=== PATIENT | female | born 1995 | race Caucasian/White ===

== ENCOUNTER 2020-03-10 19:46 | Emergency (ER) | payer MEDICAID, OTHER ==
[~2020-03-10] VITALS: Ht 160 cm; Wt 68.0 kg
[2020-03-10 19:57] VITALS: BP 126/80
[2020-03-10] MEDS ORDERED: TETRACAINE 0.5% OPHTH SOLN 4 ML BTL (SINGLE DOSE ONLY) OP ONE (20:00)
--- NOTE | 2020-03-10 20:02 | ED EENT ---
History of Present Illness General Chief Complaint: Eye Problems Stated Complaint: LEFT EYE PAIN Nursing Triage Note: PT AMBULATE TO ROOM 07 WITH C/O LEFT EYE INJURY. PT REPORTS SHE SCRATCHED HER EYE WITH THE CORNER OF A MENU. Source: patient History of Present Illness Date Seen by Provider: Mar 10, 2020 Time Seen by Provider: 19:56 Initial Comments PT ARRIVES VIA POV STATES SHE SCRATCHED HER LEFT EYE WITH THE CORNER OF A MENU, ABOUT AN HOUR AGO STATES VISION IS A LITTLE BLURRY IN LEFT EYE HAS GLASSES BUT WAS NOT WEARING THEM AT THE TIME DOES NOT WEAR CONTACTS NO PRIOR PROBLEMS/INJURIES OF EYES LAST TETANUS VACCINATION IS UNKNOWN PT IS 31 WEEKS PCP AND OB: DR. BADILLO Allergies and Home Medications Allergies Coded Allergies: No Known Drug Allergies (Unverified , 03/10/20) Patient Home Medication List Home Medication List Reviewed: Yes Review of Systems Review of Systems Constitutional: no symptoms reported Eyes: See HPI Past Xsczqby-Oqnftq-Bftzyk Hx Past Med/Social Hx: Reviewed and Corrections made Patient Social History Recent Foreign Travel: No Contact w/Someone Who Travel: No Recent Infectious Disease Expo: No Immunizations Up To Date Tetanus Booster (TDap): Unknown Past Medical History Respiratory: No Cardiac: No Neurological: No : Yes Genitourinary: No Gastrointestinal: No Musculoskeletal: No Endocrine: No HEENT: No Cancer: No Psychosocial: No Integumentary: No Blood Disorders: No Physical Exam Vital Signs Vital Signs - First Documented 03/10/20 19:57 Temp 36.1 Pulse 101 Resp 18 B/P (MAP) 126/80 (95) O2 Delivery Room Air Height, Weight, BMI Height: '" Weight: lbs. oz. kg; 26.00 BMI Method: General Appearance: WD/WN, no apparent distress Eyes: right eye normal inspection; left eye other (NO WATERING OR DRAINAGE FROM EYE. NO PHOTOPHOBIA. NO REDNESS TO EYE. FLUORESCEIN STAIN SHOWS ABRASION TO CENTER OF CORNEA) Neurologic/Psychiatric: end stapler II-XII nml as tested, alert, oriented x 3 Procedures/Interventions Eye : Location: left eye Anesthesia (gtts): Tetracaine Progress/Procedure Conclusion FLUORESCEIN STAIN WITH UPTAKE TO CENTER OF CORNEA IRRIGATED WITH STERILE SALINE Progress/Results/Core Measures Results/Orders My Orders Orders - COURTNEY DUNN DO Tetracaine 0.5% Ophth Nanci Sdv (Tetracai (03/10/20 20:00) Fluorescein Strips (Defeq-R-Svxmau) (03/10/20 20:03) Balanced Salt Irrigation Soln (Bss Irrig (03/10/20 20:03) Dipht,Pertuss(Acell),Tet Adult (Boostrix (03/10/20 20:15) Dipht,Pertuss(Acell),Tet Adult (Boostrix (03/10/20 20:10) Gentamicin 0.3% Ophth Solution (Garamyci (03/10/20 20:10) Medications Given in ED Current Medications Medications Dose Ordered Sig/Akbar Route Start Time Stop Time Status Last Admin Dose Admin Balanced Salt Solution 15 ml STK-MED ONCE .ROUTE 03/10/20 20:03 03/10/20 20:07 DC 03/10/20 20:10 15 ML Fluorescein Sodium 1 mg STK-MED ONCE .ROUTE 03/10/20 20:03 03/10/20 20:07 DC 03/10/20 20:10 1 MG Tetracaine HCl 1 OR 2 DROPS INTO AFFEC... ONCE ONCE OP 03/10/20 20:00 03/10/20 20:01 DC 03/10/20 20:11 4 ML Vital Signs/I&O 03/10/20 19:57 Temp 36.1 Pulse 101 Resp 18 B/P (MAP) 126/80 (95) O2 Delivery Room Air Blood Pressure Mean: 95 Departure Impression Primary Impression: Left corneal abrasion Additional Impression: Audernqndy-ydexrwjug-kootoun (DPT) vaccination administered at current visit Disposition: HOME, SELF-CARE Condition: Stable Departure-Patient Inst. Referrals: GARETH BADILLO MD (PCP/Family) Primary Care Physician Patient Instructions: Corneal Abrasion (DC), Diphtheria and Tetanus Toxoids, and Acellular Pertussis Vaccine Add. Discharge Instructions: DO NOT RUB OR OTHERWISE TOUCH YOUR EYE TYLENOL NEEDED FOR PAIN USE EYE DROPS--2 DROPS EVERY 4 HOURS RETURN TO ER TOMORROW TO RECHECK YOUR EYE All discharge instructions reviewed with patient and/or family. Voiced understanding. Images Eye 1 - Abrasion, Dye uptake (fluorescein) COURTNEY DUNN DO Mar 10, 2020 20:02
[2020-03-10] MEDS ORDERED: BSS 15 ML ONE (20:03)
[2020-03-10] MEDS ORDERED: FLUORESCEIN (FLUOR-I-STRIPS) 1 MG STRP ONE (20:03)
[2020-03-10] MEDS ORDERED: GENTAMICIN 0.3% OPHTH SOLN 5 ML ONE (20:10)
[2020-03-10] MEDS ORDERED: TETANUS,DIPTH,PERTUSS P/F (BOOSTRIX) 0.5 ML VIAL IM ONE ×2 (20:10→20:15)
== END 2020-03-10 20:24 | disposition home or self-care (01) ==
LOC: ER 19:50
DX: S05.02XA Injury of conjunctiva and corneal abrasion without foreign body, left eye, initial encounter (principal); Z23 Encounter for immunization; W50.4XXA Accidental scratch by another person, initial encounter
CPT/HCPCS: 90715; 99284

== ENCOUNTER 2020-03-12 12:09 | Emergency (ER) | payer MEDICAID ==
[~2020-03-12] VITALS: Ht 160 cm; Wt 68.0 kg
[2020-03-12] MEDS ORDERED: TETRACAINE 0.5% OPHTH SOLN 4 ML BTL (SINGLE DOSE ONLY) OU ONE (12:15)
[2020-03-12] MEDS ORDERED: BSS 15 ML IR ONE (12:15)
[2020-03-12] MEDS ORDERED: FLUORESCEIN (FLUOR-I-STRIPS) 1 MG STRP OU ONE (12:15)
[2020-03-12 12:17] VITALS: BP 135/63
--- NOTE | 2020-03-12 12:24 | ED EENT ---
History of Present Illness General Chief Complaint: Eye Problems Stated Complaint: L EYE F/U Source: patient Exam Limitations: no limitations History of Present Illness Date Seen by Provider: Mar 12, 2020 Time Seen by Provider: 12:20 Initial Comments TO ER with reports of needing follow-up for left eye corneal abrasion she sustained on 03/10/2020 after scratching it with the corner of the menu. Her pain is much better. She has been using the gentamicin eyedrops. She does wear glasses. Timing/Duration: this morning Location: eye (L) Prearrival Treatment: no prearrival treatment Associated Symptoms: denies symptoms Allergies and Home Medications Allergies Coded Allergies: No Known Drug Allergies (Unverified , 03/10/20) Patient Home Medication List Home Medication List Reviewed: Yes Review of Systems Review of Systems Constitutional: see HPI Eyes: See HPI Ears: No Symptoms Reported Nose: no symptoms reported Mouth: no symptoms reported Throat: no symptoms reported Respiratory: no symptoms reported Cardiovascular: no symptoms reported Musculoskeletal: no symptoms reported Past Scfmbkd-Bnicnh-Avodyk Hx Patient Social History Alcohol Use: Denies Use Recreational Drug Use: No Smoking Status: Current Everyday Smoker Type Used: Cigarettes 2nd Hand Smoke Exposure: No Recent Foreign Travel: No Contact w/Someone Who Travel: No Recent Hopitalizations: No Immunizations Up To Date Tetanus Booster (TDap): Unknown Seasonal Allergies Seasonal Allergies: Yes Past Medical History Surgeries: No Respiratory: No Cardiac: No Neurological: No Genitourinary: No UTI-Chronic Gastrointestinal: No Musculoskeletal: No Endocrine: No HEENT: No Cancer: No Psychosocial: No Integumentary: No Blood Disorders: No Visual Acuity : Vision Acuity Degree: 20/20 each eye individually while wearing glasses Physical Exam Vital Signs Vital Signs - First Documented 03/12/20 12:17 Temp 36.9 Pulse 82 Resp 18 B/P (MAP) 135/63 (87) Pulse Ox 98 O2 Delivery Room Air Height, Weight, BMI Height: '" Weight: lbs. oz. kg; 26.00 BMI Method: General Appearance: WD/WN, no apparent distress Eyes: right eye normal inspection; left eye other (scleral injection that is mild to the inferior part of the eye. No dye uptake upon fluorescein staining); bilateral eye PERRL, bilateral eye EOMI Ears: bilateral ear auricle normal, bilateral ear canal normal, bilateral ear TM normal Neck: non-tender, full range of motion Cardiovascular: regular rate, rhythm, no murmur Respiratory: no respiratory distress, no accessory muscle use Gastrointestinal: normal bowel sounds, non tender Neurologic/Psychiatric: alert, normal mood/affect, oriented x 3 Skin: normal color, warm/dry Progress/Results/Core Measures Results/Orders My Orders Orders - TED CRUZ APRN Tetracaine 0.5% Ophth Nanci Sdv (Tetracai (03/12/20 12:15) Fluorescein Strips (Pvtnk-W-Jsduao) (03/12/20 12:15) Balanced Salt Irrigation Soln (Bss Irrig (03/12/20 12:15) Vital Signs/I&O 03/12/20 12:17 Temp 36.9 Pulse 82 Resp 18 B/P (MAP) 135/63 (87) Pulse Ox 98 O2 Delivery Room Air Departure Impression Primary Impression: Left corneal abrasion Disposition: HOME, SELF-CARE Condition: Stable Departure-Patient Inst. Decision time for Depature: 12:23 Referrals: GARETH BADILLO MD (PCP/Family) Primary Care Physician Patient Instructions: Corneal Abrasion (DC) Add. Discharge Instructions: Use the eye drops three times daily for the rest of today then you can stop. All discharge instructions reviewed with patient and/or family. Voiced understanding. TED CRUZ APRN Mar 12, 2020 12:24
== END 2020-03-12 12:30 | disposition home or self-care (01) ==
LOC: EDUNIT# 12:09 → ER 12:12
DX: S05.02XA Injury of conjunctiva and corneal abrasion without foreign body, left eye, initial encounter (principal); F17.210 Nicotine dependence, cigarettes, uncomplicated; W50.4XXA Accidental scratch by another person, initial encounter
CPT/HCPCS: 99282

== ENCOUNTER 2020-05-15 01:24 | Inpatient (IN) | payer MEDICAID ==
[~2020-05-15] VITALS: Ht 160 cm; Wt 80.5 kg
[2020-05-15] VITALS (39 sets, daily range): BP systolic 103–165; BP diastolic 55–96
[2020-05-15 03:02] LABS: BILIRUBIN,URINE NEGATIVE (NEGATIVE); CLARITY,URINE CLEAR; COLOR,URINE YELLOW; GLUCOSE, URINE (UA) NEGATIVE (NEGATIVE); KETONES,URINE 1+ (NEGATIVE); LEUKOCYTE ESTERASE ,URINE NEGATIVE (NEGATIVE); NITRITE,URINE NEGATIVE (NEGATIVE); PROTEIN,URINE NEGATIVE (NEGATIVE)
[2020-05-15 03:10] LABS: BACTERIA,URINE TRACE /HPF; RBC,URINE 0-2 /HPF
[2020-05-15] MEDS ORDERED: fentaNYL INJECTION 100 MCG/2 ML AMP ONE (04:07)
[2020-05-15] MEDS ORDERED: LACTATED RINGERS 1,000 ML IV ONE (04:30)
[2020-05-15] MEDS ORDERED: fentaNYL INJECTION 100 MCG/2 ML AMP IVP ONE (04:30)
[2020-05-15] MEDS ORDERED: AMPICILLIN 2,000 MG/14.8 ML (IV USE) ONE (04:37)
[2020-05-15] MEDS ORDERED: fentaNYL 2 mcg/ml BUPIVA 0.125 0 ML ONE (04:38)
[2020-05-15] MEDS ORDERED: WATER (STERILE) FOR INJECTION 20 ML ONE (04:38)
[2020-05-15] MEDS ORDERED: AMPICILLIN FOR IV USE 2,000 MG in WATER (STERILE) FOR INJECTION 14.8 ML IV SCH (04:39)
[2020-05-15 04:45] LABS: BASOPHILS % (AUTO) 0 % (0-10); EOSINOPHILS # (AUTO) 0.1 10^3/uL (0.0-0.3); EOSINOPHILS % (AUTO) 0 % (0-10); HEMATOCRIT 39 % (35-52); HEMOGLOBIN 12.8 g/dL (11.5-16.0); LYMPHOCYTES # (AUTO) 1.7 10^3/uL (1.0-4.0); LYMPHOCYTES % (AUTO) 9 % (12-44); MEAN CORPUSCULAR HEMOGLOBIN 30 pg (25-34); MEAN CORPUSCULAR HGB CONC 33 g/dL (32-36); MEAN CORPUSCULAR VOLUME 92 fL (80-99); MONOCYTES # (AUTO) 0.8 10^3/uL (0.0-1.0); MONOCYTES % (AUTO) 4 % (0-12); NEUTROPHILS # (AUTO) 16.5 10^3/uL (1.8-7.8); NEUTROPHILS % (AUTO) 85 % (42-75); PLATELET COUNT 238 10^3/uL (130-400); WHITE BLOOD COUNT 19.4 10^3/uL (4.3-11.0)
[2020-05-15] MEDS ORDERED: D5 LR IV SOLUTION 1,000 ML IV SCH (04:45)
[2020-05-15] MEDS ORDERED: MINERAL OIL CONCENTRATE 99.9% 15 ML UDC TOP PRN (04:45)
[2020-05-15] MEDS ORDERED: diphenhydrAMINE 50 MG/ML INJ (BENADRYL) IV PRN (05:15)
[2020-05-15] MEDS ORDERED: METOCLOPRAMIDE INJ 10 MG/2 ML (REGLAN) IV PRN (05:15)
[2020-05-15] MEDS ORDERED: ONDANSETRON 4 MG/2 ML (SDV) Z0FRAN IV PRN (05:15)
[2020-05-15] MEDS ORDERED: LACTATED RINGERS 1,000 ML IV SCH (05:15)
[2020-05-15] MEDS ORDERED: EPIDURAL (fentaNYL 2 MCG/ML BUPIVA 0.125%)100 ML BAG EPI SCH (05:15)
[2020-05-15] MEDS ORDERED: NALOXONE 0.4 MG/ML 1 ML (NARCAN) VIAL IV PRN ×2 (05:15)
[2020-05-15] MEDS ORDERED: CATHETER FLUSH 10 ML SYR IV SCH (06:00)
[2020-05-15] MEDS ORDERED: AMPICILLIN FOR IV USE 1,000 MG in WATER (STERILE) FOR INJECTION 7.4 ML IV SCH (08:45)
--- NOTE | 2020-05-15 08:54 | History & Physical-OB ---
OB - Chief Complaint & HPI Date/Time Date of Admission: Date of Admission: May 15, 2020 at 04:35 Date seen by a Provider: May 15, 2020 Time Seen by a Provider: 08:49 Chief Complaint/History OB-Reason for Admission/Chief: Onset of Labor Hx : 1 Hx Para: 0 Expected Date of Delivery: May 17, 2020 Gestational Age in Weeks: 39 Gestational Age in Days: 5 History of Labs O+, antibody screen neg RI, Hep B/HIV/RPR neg GC/Chl neg Penta - low risk Glucola neg Allergies and Home Medications Allergies Coded Allergies: No Known Drug Allergies (Unverified , 03/10/20) Home Medications No Active Prescriptions or Reported Meds Patient Home Medication List Home Medication List Reviewed: Yes OB - History Hx of Present Care: Yes Ultrasounds: Normal mid trimester US Obstetrical Complications: None Medical Complications: None Information Induced Hypertension: No Maternal Gestational Diabetes: No Hemorrhage: No Obstetrical History Hx : 1 Hx Para: 0 Hx Total # of Abortions (Spona: 0 Patient Past Medical History none Social History/Family History Alcohol Use: Denies Use Recreational Drug Use: No 2nd Hand Smoke Exposure: No Immunizations Tetanus Booster (TDap): Less than 5yrs (03/10/20) Rubella: immune RPR/VDRL: Negative HBsAG: Negative OB - Admission Exam Physical Exam Vitals: Vital Signs 05/15/20 05/15/20 05:45 08:15 Temp 37.0 Pulse 80 Resp 18 B/P (MAP) 116/77 (90) Pulse Ox 98 O2 Delivery Room Air HEENT: PERRLA Lungs: Clear Abdomen: Gravid Cervical Dilatation: 10cm (3cm on admission) Effacement: 100% Station: +1 Membranes: Ruptured (AROM) Amniotic Fluid: Clear Heart Rate: 140's Accelerations: Accelerations Present Short Term Variability: Present Jail Variability: Average (6-25) Contractions on Admission: < 5 Minutes Apart Labs Laboratory Tests Test 05/15/20 01:30 05/15/20 04:25 Range/Units Urine Color YELLOW Urine Clarity CLEAR Urine pH 6.0 5-9 Urine Specific [place] 1.015 L 1.016-1.022 Urine Protein NEGATIVE NEGATIVE Urine Glucose (UA) NEGATIVE NEGATIVE Urine Ketones 1+ H NEGATIVE Urine Nitrite NEGATIVE NEGATIVE Urine Bilirubin NEGATIVE NEGATIVE Urine Urobilinogen 0.2 < = 1.0 MG/DL Urine Leukocyte Esterase NEGATIVE NEGATIVE Urine RBC (Auto) TRACE-I NEGATIVE Urine RBC 0-2 /HPF Urine WBC NONE /HPF Urine Squamous Epithelial Cells 2-5 /HPF Urine Crystals NONE /LPF Urine Bacteria TRACE /HPF Urine Casts NONE /LPF Urine Mucus NEGATIVE /LPF Urine Culture Indicated NO White Blood Count 19.4 H 4.3-11.0 10^3/uL Red Blood Count 4.21 3.80-5.11 10^6/uL Hemoglobin 12.8 11.5-16.0 g/dL Hematocrit 39 35-52 % Mean Corpuscular Volume 92 80-99 fL Mean Corpuscular Hemoglobin 30 25-34 pg Mean Corpuscular Hemoglobin Concent 33 32-36 g/dL Red Cell Distribution Width 12.9 10.0-14.5 % Platelet Count 238 130-400 10^3/uL Mean Platelet Volume 11.0 9.0-12.2 fL Immature Granulocyte % (Auto) 2 % Neutrophils (%) (Auto) 85 H 42-75 % Lymphocytes (%) (Auto) 9 L 12-44 % Monocytes (%) (Auto) 4 0-12 % Eosinophils (%) (Auto) 0 0-10 % Basophils (%) (Auto) 0 0-10 % Neutrophils # (Auto) 16.5 H 1.8-7.8 10^3/uL Lymphocytes # (Auto) 1.7 1.0-4.0 10^3/uL Monocytes # (Auto) 0.8 0.0-1.0 10^3/uL Eosinophils # (Auto) 0.1 0.0-0.3 10^3/uL Basophils # (Auto) 0.0 0.0-0.1 10^3/uL Immature Granulocyte # (Auto) 0.3 H 0.0-0.1 10^3/uL OB - Assessment/Plan/Diagnosis Assessment Assessment: active labor Admission Dx MICHAEL Admission Status: Inpatient Order (span 2 midnights) Reason for Inpatient Admission: Labor and Delivery Plan Plan: Expectant Management MICHELLE ROLON DO May 15, 2020 08:54
[2020-05-15] MEDS ORDERED: OXYTOCIN PRE-MIX DRIP 500 ML IV ONE ×2 (09:30→10:37)
--- NOTE | 2020-05-15 10:59 | OB Labor & Delivery Record ---
Vag Delivery Note Vag Delivery Note Date of Delivery: 05/15/20 Preoperative Diagnosis: Lucia Puente is a (24 /Para 1 / 0, Gestational Age (wks)39with [] Postoperative Diagnosis: Same Surgeon: MICHELLE ROLON Anesthesia: Epidural Delivery Type: Spontaneous Vaginal Delivery Findings: Viable male infant, apgars 8/9, weight 6#4 Lacerations: L vaginal sidewall and posterior vaginal sidewall Intact placenta with 3 vessel cord. Nuchal cord x1, no body cord or shoulder dystocia. Retained membranes removed with manual exploration of the uterus (MEU) Estimated Blood Loss: 150 ml Complications: None Condition: Stable Description of Procedure: The patient is a 24 year old female who presented in spontaneous labor dilated to 3cm. She was admitted and informed consent was obtained. Her labor course was unremarkable. She progressed to complete dilatation and began to push. She was then set up for delivery. The 's head was delivered atraumatically in the MERARY position, head noted to be acyclintic. The shoulders and remainder of the 's body were then delivered without difficulty. Upon delivery, the head was held below the level of the perineum and the mouth and nares were bulb suctioned. was placed on the maternal abdomen. The cord was doubly clamped and cut and the infant after cessation of cord pulsation. An intact radha centa with 3-vessel cord delivered via Robe and there was found to be minimal bleeding; membranes were noted to be retained and were removed via MEU.~ Vigorous fundal massage was performed and the fundus was found to be firm. IV oxytocin was given. Examination of the vagina and perineum revealed a left and posterior vaginal sidewall laceration repaired in the usual fashion with 3-0 vicryl suture. Following the repair, sponge, instrument and needle counts were correct. Mom and baby were both in stable condition in the labor suite. Vitals - Labs Vital Signs - I&O Vital Signs Date Time Temp Pulse Resp B/P (MAP) Pulse Ox O2 Delivery O2 Flow Rate FiO2 05/15/20 09:00 90 18 120/66 (84) 98 Room Air 05/15/20 08:45 36.8 91 18 114/78 (90) 98 Room Air 05/15/20 08:30 81 18 113/74 (87) 97 Room Air 05/15/20 08:15 80 18 116/77 (90) 98 Room Air 05/15/20 08:00 82 18 123/70 (87) 97 Room Air 05/15/20 07:45 80 18 114/58 (76) 98 Room Air 05/15/20 07:30 77 18 115/65 (82) 97 Room Air 05/15/20 07:15 100 18 121/62 (81) 99 Room Air 05/15/20 07:00 96 18 122/59 (80) 98 Room Air 05/15/20 06:45 85 18 116/57 (76) 99 Room Air 05/15/20 06:30 85 18 112/55 (74) 98 Room Air 05/15/20 06:15 84 18 116/62 (80) 98 Room Air 05/15/20 06:00 94 18 115/72 (86) 100 Room Air 05/15/20 05:50 96 18 97 Room Air 05/15/20 05:45 37.0 87 18 122/65 (84) 96 Room Air 05/15/20 05:40 81 18 115/55 (75) 97 Room Air 05/15/20 05:35 88 18 130/63 (85) 100 Room Air 05/15/20 05:30 95 18 163/81 (108) 99 Room Air 05/15/20 05:25 91 18 156/70 (98) 99 Room Air 05/15/20 05:20 86 18 131/96 (108) 99 Room Air 05/15/20 05:15 88 18 165/69 (101) 100 Room Air 05/15/20 05:10 36.6 90 18 156/76 (102) 100 Room Air 05/15/20 02:05 36.8 90 18 97 Room Air 05/15/20 01:41 36.8 90 18 97 Room Air 05/15/20 01:40 36.8 90 18 122/67 (85) 97 Room Air I & O 05/15/20 07:00 Intake Total 1029.6 ml Balance 1029.6 ml Labs Laboratory Tests 05/15/20 01:30: Urine Color YELLOW, Urine Clarity CLEAR, Urine pH 6.0, Urine Specific [place] 1.015L, Urine Protein NEGATIVE, Urine Glucose (UA) NEGATIVE, Urine Ketones 1+H, Urine Nitrite NEGATIVE, Urine Bilirubin NEGATIVE, Urine Urobilinogen 0.2, Urine Leukocyte Esterase NEGATIVE, Urine RBC (Auto) TRACE-I, Urine RBC 0-2, Urine WBC NONE, Urine Squamous Epithelial Cells 2-5, Urine Crystals NONE, Urine Bacteria TRACE, Urine Casts NONE, Urine Mucus NEGATIVE, Urine Culture Indicated NO 05/15/20 04:25: White Blood Count 19.4H, Red Blood Count 4.21, Hemoglobin 12.8, Hematocrit 39, Mean Corpuscular Volume 92, Mean Corpuscular Hemoglobin 30, Mean Corpuscular Hemoglobin Concent 33, Red Cell Distribution Width 12.9, Platelet Count 238, Mean Platelet Volume 11.0, Immature Granulocyte % (Auto) 2, Neutrophils (%) (Auto) 85H, Lymphocytes (%) (Auto) 9L, Monocytes (%) (Auto) 4, Eosinophils (%) (Auto) 0, Basophils (%) (Auto) 0, Neutrophils # (Auto) 16.5H, Lymphocytes # (Auto) 1.7, Monocytes # (Auto) 0.8, Eosinophils # (Auto) 0.1, Basophils # (Auto) 0.0, Immature Granulocyte # (Auto) 0.3H MICHELLE ROLON DO May 15, 2020 10:59
[2020-05-15] MEDS: OXYTOCIN PRE-MIX DRIP 500 ML IV SCH ×2 (11:23→11:24)
[2020-05-15] MEDS ORDERED: WITCH HAZEL(TUCKS) 40 EA JAR TOP PRN (11:30)
[2020-05-15] MEDS ORDERED: BENZOCAINE/MENTHOL (DERMOPLAST) 60 ML CAN TP PRN (11:30)
[2020-05-15] MEDS: IBUPROFEN 600 MG (MOTRIN) TAB PO SCH ×2 (12:08→17:55)
[2020-05-15] MEDS: ACETAMINOPHEN 500 MG TAB (TYLENOL) PO SCH (17:57)
[2020-05-15] MEDS: CATHETER FLUSH 10 ML SYR IV SCH (19:46)
[2020-05-15] MEDS: DOCUSATE SODIUM 100 MG (COLACE) CAP PO SCH (20:50)
[2020-05-16 00:27] VITALS: BP 106/61
[2020-05-16] MEDS: ACETAMINOPHEN 500 MG TAB (TYLENOL) PO SCH ×4 (00:27→19:51)
[2020-05-16] MEDS: IBUPROFEN 600 MG (MOTRIN) TAB PO SCH ×4 (00:27→19:51)
[2020-05-16 04:10] VITALS: BP 104/55
[2020-05-16] MEDS: CATHETER FLUSH 10 ML SYR IV SCH (04:15)
[2020-05-16 05:59] LABS: BASOPHILS % (AUTO) 0 % (0-10); EOSINOPHILS # (AUTO) 0.2 10^3/uL (0.0-0.3); EOSINOPHILS % (AUTO) 2 % (0-10); HEMATOCRIT 31 % (35-52); LYMPHOCYTES % (AUTO) 20 % (12-44); MEAN CORPUSCULAR HEMOGLOBIN 30 pg (25-34); MEAN CORPUSCULAR HGB CONC 32 g/dL (32-36); MEAN CORPUSCULAR VOLUME 94 fL (80-99); MEAN PLATELET VOLUME 10.8 fL (9.0-12.2); MONOCYTES # (AUTO) 0.8 10^3/uL (0.0-1.0); MONOCYTES % (AUTO) 8 % (0-12); NEUTROPHILS # (AUTO) 6.7 10^3/uL (1.8-7.8); NEUTROPHILS % (AUTO) 69 % (42-75); PLATELET COUNT 197 10^3/uL (130-400); WHITE BLOOD COUNT 9.8 10^3/uL (4.3-11.0)
[2020-05-16 07:49] VITALS: BP 112/58
[2020-05-16] MEDS: PRENATAL VITAMIN 1 EA TAB PO SCH (07:50)
[2020-05-16] MEDS: DOCUSATE SODIUM 100 MG (COLACE) CAP PO SCH ×2 (07:50→19:51)
--- NOTE | 2020-05-16 08:30 | Progress Note ---
Subjective Subjective/Events-last exam Doing well. Bleeding slowed. going well. Objective Exam Last Set of Vital Signs Vital Signs Date Time Temp Pulse Resp B/P (MAP) Pulse Ox O2 Delivery O2 Flow Rate FiO2 05/16/20 07:49 36.7 99 18 112/58 (76) 98 Room Air 05/15/20 10:15 15.00 Capillary Refill : Less Than 3 Seconds I&O Intake and Output 05/16/20 00:00 Intake Total 3637.0 ml Balance 3637.0 ml Intake Oral 600 ml IV Total 3037.0 ml # Voids 1 General: Alert, Oriented X3, Cooperative Psych/Mental Status: Mood NL Results/Procedures Lab Laboratory Tests 05/15/20 12:35: Coronavirus (COVID-19)(PCR) Negative 05/16/20 05:49: White Blood Count 9.8, Red Blood Count 3.29L, Hemoglobin 10.0#L, Hematocrit 31L, Mean Corpuscular Volume 94, Mean Corpuscular Hemoglobin 30, Mean Corpuscular Hemoglobin Concent 32, Red Cell Distribution Width 13.2, Platelet Count 197, Mean Platelet Volume 10.8, Immature Granulocyte % (Auto) 2, Neutrophils (%) (Auto) 69, Lymphocytes (%) (Auto) 20, Monocytes (%) (Auto) 8, Eosinophils (%) (Auto) 2, Basophils (%) (Auto) 0, Neutrophils # (Auto) 6.7, Lymphocytes # (Auto) 2.0, Monocytes # (Auto) 0.8, Eosinophils # (Auto) 0.2, Basophils # (Auto) 0.0, Immature Granulocyte # (Auto) 0.2H Assessment/Plan Assessment/Plan (1) Status post vaginal delivery Assessment & Plan: PPD #1 s/p L and posterior vaginal side wall laceration s/p repair Doing well. Routine post- course. Anticipate DC home tomorrow. (2) Positive GBS test MICHELLE ROLON DO May 16, 2020 08:30
--- NOTE | 2020-05-16 11:27 | Anesthesia-Regional Post-Op ---
Regional Patient Condition Mental Status: Alert, Oriented x3 Circulation: Same as Pre-Op Headache: Absent Sensation: Full Recovery Motor Block: Absent Post Op Complications Complications None Follow Up Care/Instructions Patient Instructions None needed. Anesthesia/Patient Condition Patient is doing well, no complaints, stable vital signs, no apparent adverse anesthesia problems. BAYRON CEVALLOS DO May 16, 2020 11:27
[2020-05-16 14:05] VITALS: BP 113/55
[2020-05-16 20:02] VITALS: BP 114/67
[2020-05-17 02:00] VITALS: BP 110/61
[2020-05-17] MEDS: ACETAMINOPHEN 500 MG TAB (TYLENOL) PO SCH ×2 (02:05→08:31)
[2020-05-17] MEDS: IBUPROFEN 600 MG (MOTRIN) TAB PO SCH ×2 (02:05→08:32)
[2020-05-17 08:29] VITALS: BP 104/56
[2020-05-17] MEDS: PRENATAL VITAMIN 1 EA TAB PO SCH (08:32)
[2020-05-17] MEDS: DOCUSATE SODIUM 100 MG (COLACE) CAP PO SCH (08:32)
--- NOTE | 2020-05-17 09:19 | Short Stay Summary ---
Discharge Summary Hospital Course Problems/Dx: (1) Status post vaginal delivery (2) Positive GBS test Final Diagnosis: see Problem List Hospital Course Date of Admission: May 15, 2020 at 04:35 Family Physician/Provider: Keiko Hermosillo MD Date of Discharge: 05/17/20 Hospital Course: (1) Status post vaginal delivery Assessment & Plan: PPD #2 s/p L and posterior vaginal side wall laceration s/p repair Doing well. Routine post- course. DC home. Labs and Pending Lab Test: Laboratory Tests 05/15/20 01:30: Urine Color YELLOW, Urine Clarity CLEAR, Urine pH 6.0, Urine Specific [place] 1.015L, Urine Protein NEGATIVE, Urine Glucose (UA) NEGATIVE, Urine Ketones 1+H, Urine Nitrite NEGATIVE, Urine Bilirubin NEGATIVE, Urine Urobilinogen 0.2, Urine Leukocyte Esterase NEGATIVE, Urine RBC (Auto) TRACE-I, Urine RBC 0-2, Urine WBC NONE, Urine Squamous Epithelial Cells 2-5, Urine Crystals NONE, Urine Bacteria TRACE, Urine Casts NONE, Urine Mucus NEGATIVE, Urine Culture Indicated NO 05/15/20 04:25: White Blood Count 19.4H, Red Blood Count 4.21, Hemoglobin 12.8, Hematocrit 39, Mean Corpuscular Volume 92, Mean Corpuscular Hemoglobin 30, Mean Corpuscular Hemoglobin Concent 33, Red Cell Distribution Width 12.9, Platelet Count 238, Mean Platelet Volume 11.0, Immature Granulocyte % (Auto) 2, Neutrophils (%) (Auto) 85H, Lymphocytes (%) (Auto) 9L, Monocytes (%) (Auto) 4, Eosinophils (%) (Auto) 0, Basophils (%) (Auto) 0, Neutrophils # (Auto) 16.5H, Lymphocytes # (Auto) 1.7, Monocytes # (Auto) 0.8, Eosinophils # (Auto) 0.1, Basophils # (Auto) 0.0, Immature Granulocyte # (Auto) 0.3H, Syphilis Serology Non-Reactive 05/15/20 12:35: Coronavirus (COVID-19)(PCR) Negative 05/16/20 05:49: White Blood Count 9.8, Red Blood Count 3.29L, Hemoglobin 10.0#L, Hematocrit 31L, Mean Corpuscular Volume 94, Mean Corpuscular Hemoglobin 30, Mean Corpuscular Hemoglobin Concent 32, Red Cell Distribution Width 13.2, Platelet Count 197, Mean Platelet Volume 10.8, Immature Granulocyte % (Auto) 2, Neutrophils (%) (Auto) 69, Lymphocytes (%) (Auto) 20, Monocytes (%) (Auto) 8, Eosinophils (%) (Auto) 2, Basophils (%) (Auto) 0, Neutrophils # (Auto) 6.7, Lymphocytes # (Auto) 2.0, Monocytes # (Auto) 0.8, Eosinophils # (Auto) 0.2, Basophils # (Auto) 0.0, Immature Granulocyte # (Auto) 0.2H Home Meds Active No Active Prescriptions or Reported Medications Assessment/Pt Instructions follow-up with Dr. Hermosillo in 6wk Discharge Instructions Discharge Diet: No Restrictions Activity as Tolerated: Yes Discharge Physical Examination General Appearance: Alert, Oriented X3, Cooperative Psych/Mental Status: Mood NL Allergies: Coded Allergies: No Known Drug Allergies (Unverified , 03/10/20) Discharge Summary Date of Admission May 15, 2020 at 04:35 Date of Discharge MICHELLE ROLON DO May 17, 2020 09:19
[2020-05-17] MEDS ORDERED: IBUP-844 PO (09:20)
== END 2020-05-17 12:10 | disposition home or self-care (01) | DRG 807 ==
LOC: WSo 01:24 → LDRP 01:25 → WSo 04:44 → LDRP 14:06
PROVIDERS: ADMIT Family Medicine; ATTEND Family Medicine
PROC: 10E0XZZ Delivery of Products of Conception, External Approach (ICD-10-PCS; principal; 2020-05-15)
PROC: 10D17Z9 Manual Extraction of Products of Conception, Retained, Via Natural or Artificial Opening (ICD-10-PCS; 2020-05-15)
PROC: 0UQGXZZ Repair Vagina, External Approach (ICD-10-PCS; 2020-05-15)
DX: O99.824 Streptococcus B carrier state complicating childbirth (principal); Z37.0 Single live birth; O73.1 Retained portions of placenta and membranes, without hemorrhage; O71.4 Obstetric high vaginal laceration alone; O69.81X0 Labor and delivery complicated by cord around neck, without compression, not applicable or unspecified; Z3A.39 39 weeks gestation of pregnancy; Z20.822 Contact with and (suspected) exposure to COVID-19
CPT/HCPCS: 36415; 81000; 85025; 86780; 86850; 86900; 86901; 87635; 99212

== ENCOUNTER 2020-08-04 22:54 | Emergency (ER) | payer MEDICAID ==
[~2020-08-04] VITALS: Ht 160 cm; Wt 63.5 kg
[~2020-08-04 22:54] MED LIST: IBUP-844 PO; PROM25TA14 PO
[2020-08-04 22:55] VITALS: BP 119/83
[2020-08-04] MEDS ORDERED: MAGN100T5 PO (23:04)
--- NOTE | 2020-08-04 23:30 | ED Headache ---
General Chief Complaint: Head/Cervical Problems Stated Complaint: MIGRAINE Nursing Triage Note: C/O LEFT ANTERIOR HEADACHE X2 DAYS WORSE X2HRS. Nursing Sepsis Screen: No Definite Risk Source: patient History of Present Illness Date Seen by Provider: August 04, 2020 Time Seen by Provider: 23:11 Initial Comments PT ARRIVES VIA POV FROM HOME WITH C/O "MIGRAINE" PAIN IS OVER LEFT BROW AND "GOES BACK AND FORTH BETWEEN HER EYEBROW AND HER MOSQUE" HAS HAD SOME NAUSEA TODAY AND "FELT SHAKEY" EARLIER NO VOMITING NO VISION CHANGES NO PARESTHESIAS OR MOTOR DEFICITS NO NECK PAIN OR STIFFNESS NO FEVER OR RECENT ILLNESS NO AURA STATES SHE HAS HAD MIGRAINES SINCE SHE WAS 21, "REALLY BAD FOR 2 1/2 YEARS" STATES SHE GOT AND DID NOT HAVE ANY HEADACHES AT ALL, THEN DELIVERED 05/15/20 AND HEADACHES HAVE RETURNED SINCE DELIVERY PT HAD NORMAL AND DELIVERY WITHOUT COMPLICATIONS PT IS PT IS NOT ON CONTROL AND HAS NOT HAD A PERIOD SINCE DELIVERY, NOR DONE A TEST PT STATES SHE HAS NEVER HAD ANY TESTS/WORK UP FOR HER HEADACHES NOR SEEN A NEUROLOGIST / HEADACHE SPECIALIST NO KNOWN SICK CONTACTS OR EXPOSURE TO COVID-19, NOR HAS SHE HAD COVID-19 VACCINE SEEN HERE 08/01/20 FOR SAME, WAS GIVEN INJECTIONS FOR HER HEADACHE STATES HEADACHE GOT A LITTLE BETTER, BUT HAS NOT GONE AWAY. TOOK 1 IBUPROFEN SOMETIME THIS AFTERNOON, AND 1 EXCEDRIN MIGRAINE AROUND 1999 LAURE HAS NOT SOUGHT CARE WITH HER PCP FOR THIS AT ANY TIME. STATES SHE NOW HAS AN APPOINTMENT NEXT SATURDAY WITH DR. BADILLO FOR THIS PROBLEM PCP: [facility] [place], DR. BADILLO Allergies and Home Medications Allergies Coded Allergies: No Known Drug Allergies (Unverified , 03/10/20) Home Medications Ibuprofen 600 Mg Tablet, 600 MG PO Q6HR PRN for CRAMPS Prescribed by: MICHELLE ROLON on 05/17/20919 Promethazine HCl 25 Mg Tablet, 25 MG PO Q6H PRN for NAUSEA/VOMITING Prescribed by: KIRAN ZELAYA on 08/01/20 1925 Patient Home Medication List Home Medication List Reviewed: Yes Review of Systems Review of Systems Constitutional: no symptoms reported Eyes: No Symptoms Reported Ears, Nose, Mouth, Throat: no symptoms reported Respiratory: no symptoms reported Cardiovascular: no symptoms reported Gastrointestinal: see HPI; No abdominal pain, No diarrhea; nausea; No vomiting Genitourinary: no symptoms reported Musculoskeletal: no symptoms reported Skin: no symptoms reported Psychiatric/Neurological: See HPI, Headache Past Crlzsuu-Yietdw-Eiibvf Hx Past Med/Social Hx: Reviewed and Corrections made Patient Social History Alcohol Use: Denies Use Drug of Choice: DENIES Smoking Status: Former Smoker Type Used: Cigarettes Former Smoker, Quit: Apr 11, 2020 2nd Hand Smoke Exposure: No Recent Infectious Disease Expo: No Recent Hopitalizations: No Immunizations Up To Date Tetanus Booster (TDap): Less than 5yrs Seasonal Allergies Seasonal Allergies: Yes Past Medical History Surgeries: No Respiratory: No Cardiac: No Neurological: Yes (HEADACHES SINCE AGE 21) Headaches /Migraines Reproductive Disorders: No Genitourinary: Yes UTI-Chronic Gastrointestinal: No Musculoskeletal: No Endocrine: No HEENT: No Cancer: No Psychosocial: No Integumentary: No Blood Disorders: No Physical Exam Vital Signs Vital Signs - First Documented 08/04/20 22:55 Temp 36.2 Pulse 79 Resp 18 B/P (MAP) 119/83 (95) Pulse Ox 94 O2 Delivery Room Air Capillary Refill : Less Than 3 Seconds Height, Weight, BMI Height: '" Weight: lbs. oz. kg; 24.00 BMI Method: General Appearance: WD/WN, no apparent distress, other (SITTING -STYLE, PLAYING WITH . DOES NOT APPEAR TO BE IN ANY DISCOMFORT OR DISTRESS. ) HEENT: PERRL/EOMI, normal ENT inspection, TMs normal, pharynx normal; No photophobia Neck: non-tender, full range of motion, supple, normal inspection Cardiovascular: regular rate, rhythm, no murmur Respiratory: normal breath sounds Gastrointestinal: non tender, soft Back: normal inspection, no vertebral tenderness Extremities: normal inspection Psychiatric: alert, oriented x 3 Crainal Nerves: normal hearing, normal speech, PERRL Coordination/Gait: normal gait Motor/Sensory: no motor deficit, no sensory deficit Skin: normal color, warm/dry Progress/Results/Core Measures Results/Orders My Orders Orders - COURTNEY DUNN DO Urine Bedside (08/04/20 23:19) Diphenhydramine Injection (Benadryl Inje (08/04/20 23:45) Promethazine Injection (Phenergan Injec (08/04/20 23:45) Acetaminophen Tablet (Tylenol Tablet) (08/04/20 23:45) Medications Given in ED Current Medications Medications Dose Ordered Sig/Akbar Route Start Time Stop Time Status Last Admin Dose Admin Acetaminophen 1,000 mg ONCE ONCE PO 08/04/20 23:45 08/04/20 23:46 DC 08/04/20 23:39 1,000 MG Diphenhydramine HCl 50 mg ONCE ONCE IM 08/04/20 23:45 08/04/20 23:46 DC 08/04/20 23:54 50 MG Promethazine HCl 25 mg ONCE ONCE IM 08/04/20 23:45 08/04/20 23:46 DC 08/04/20 23:53 25 MG Vital Signs/I&O 08/04/20 22:55 Temp 36.2 Pulse 79 Resp 18 B/P (MAP) 119/83 (95) Pulse Ox 94 O2 Delivery Room Air Blood Pressure Mean: 95 Progress Progress Note : Progress Note DROVE SELF HERE, PT WAS ABLE TO FIND A BUS GREASER BEFORE SHE WAS GIVEN INJECTIONS FOR HER HEADACHE Departure Impression Primary Impression: Chronic headaches Disposition: 01 HOME, SELF-CARE Condition: Stable Departure-Patient Inst. Decision time for Depature: 23:34 Referrals: GARETH BADILLO MD (PCP/Family) Primary Care Physician Patient Instructions: Headache, Adult (DC) Add. Discharge Instructions: TYLENOL 1 GRAM/ MOTRIN 800 MG 4 TIMES A DAY NEEDED FOR PAIN LOTS OF CLEAR LIQUIDS KEEP YOUR APPOINTMENT NEXT WEEK WITH DR. BADILLO All discharge instructions reviewed with patient and/or family. Voiced understanding. COURTNEY DUNN DO August 04, 2020 23:30
[2020-08-04] MEDS ORDERED: ACETAMINOPHEN 500 MG TAB (TYLENOL) PO ONE (23:45)
[2020-08-04] MEDS ORDERED: PROMETHAZINE INJ 25 MG/ML (PHENERGAN) AMP IM ONE (23:45)
[2020-08-04] MEDS ORDERED: diphenhydrAMINE 50 MG/ML INJ (BENADRYL) IM ONE (23:45)
== END 2020-08-04 23:56 | disposition home or self-care (01) ==
LOC: EDUNIT# 22:54 → ER 22:55
DX: R51.9 Headache, unspecified (principal); Z86.69 Personal history of other diseases of the nervous system and sense organs; Z87.891 Personal history of nicotine dependence
CPT/HCPCS: 84703; 96372; 99284

== ENCOUNTER → 2021-02-01 | Outpatient (CLI) | payer MEDICAID ==
[~2021-02-01] MED LIST changes: +MAGN100T5 PO
== END ==
LOC: LAB 08:30
PROVIDERS: ATTEND Family Medicine
DX: R05.9 Cough, unspecified (principal); R50.9 Fever, unspecified; Z20.822 Contact with and (suspected) exposure to COVID-19
CPT/HCPCS: 87636

== ENCOUNTER 2021-02-26 04:20 | Emergency (ER) | payer MEDICAID ==
[~2021-02-26] VITALS: Ht 160 cm; Wt 77.1 kg
--- NOTE | 2021-02-26 04:41 | ED Chest Pain ---
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 C/O CHEST PAIN X 1 WEEK PAIN IS IN MID CHEST, OCCASIONALLY GOES UP TO LEFT CLAVICLE AREA NOTHING WORSENS OR IMPROVES PAIN ABOUT AN HOUR AGO, SHE BEGAN TO HAVE PAIN AND TINGLING IN LEFT ARM, SO CAME HERE SLIGHT SHORTNESS OF BREATH AT TIMES, BUT NO PAIN WITH BREATHING NO SWEATS NO NAUSEA/VOMITING NO DIZZINESS OR SYNCOPE NO SWELLING IN LEGS/FEET OR PAIN IN CALVES NO FEVER OR RECENT ILLNESS NO COUGH PT HAS NOT HAD COVID-19 VACCINE PT DELIVERED 9 MONTHS AGO STATES SHE ALWAYS 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 LAST SHOT IN DECEMBER PT IS HAS BEEN SEEN AT [facility] ON 02/17 AND AGAIN 02/21/21 HAD EKG'S BOTH TIMES AND WERE TOLD THEY WERE NORMAL STATES SHE WAS TOLD SHE HAD INFLAMMATION IN HER CHEST AND WAS PRESCRIBED PREDNISONE 40 MG DAILY ON 02/21/21 STATES SHE HAS HAD SIMILAR CHEST PAIN AND "CHEST INFLAMMATION" IN THE PAST, BUT USUALLY DOES NOT LAST THIS LONG. PT STATES "I KNOW I'M JUST FREAKING MYSELF OUT" TOOK EXCEDRIN AT 2300 TONIGHT FOR HEADACHE STARTED ON TOPAMAX 4 DAYS PRIOR TO THE ONSET OF CHEST PAIN, THEN STOPPED IT WHEN CHEST PAIN STARTED ON 02/17/21--WAS PRESCRIBED FOR HEADACHES. PCP: [facility]. DR. BADILLO Allergies and Home Medications Allergies Coded Allergies: No Known Drug Allergies (Unverified , 03/10/20) Patient Home Medication List Home Medication List Reviewed: Yes Ibuprofen (Ibu) 600 Mg Tablet, 600 MG PO Q6HR PRN for CRAMPS Prescribed by: MICHELLE ROLON on 05/17/20 0920 Magnesium Amino Acid Chelate (Magnesium) 100 Mg Tablet, Unknown Dose PO, (Reported) Entered as Reported by: RUFINA VILLANUEVA on 08/04/20 2304 Promethazine HCl (Promethazine Tablet) 25 Mg Tablet, 25 MG PO Q6H PRN for NAUSEA/VOMITING Prescribed by: KIRAN ZELAYA on 08/01/20 192 Review of Systems Review of Systems Constitutional: no symptoms reported EENTM: No Symptoms Reported Respiratory: See HPI Cardiovascular: See HPI Gastrointestinal: No Symptoms Reported; Denies Abdominal Pain, Denies Nausea, Denies Vomiting Genitourinary: No Symptoms Reported Musculoskeletal: see HPI Skin: no symptoms reported Psychiatric/Neurological: See HPI Endocrine: No Symptoms Reported Hematologic/Lymphatic: No Symptoms Reported Past Lbgulox-Yuokun-Ofzqmt Hx Patient Social History Tobacco Use?: No Use of E-Cig and/or Vaping dev: Yes E-Cig or Vaping type used: Nicotine Substance use?: No Alcohol Use?: No Pt feels they are or have been: No Immunizations Up To Date Tetanus Booster (TDap): Less than 5yrs Influenza Vaccine Up-to-Date: No; Not Current Seasonal Allergies Seasonal Allergies: Yes Past Medical History Surgeries: No Respiratory: No Cardiac: No Neurological: Yes (HEADACHES SINCE AGE 21) Headaches /Migraines Reproductive Disorders: No Female Reproductive Disorders: Denies Genitourinary: Yes UTI-Chronic Gastrointestinal: No Musculoskeletal: No Endocrine: No HEENT: No Cancer: No Psychosocial: No Integumentary: No Blood Disorders: No Physical Exam Vital Signs Vital Signs - First Documented 02/26/21 04:25 Temp 36.8 Pulse 59 Resp 18 B/P (MAP) 135/81 (99) Pulse Ox 100 O2 Delivery Room Air Capillary Refill : Less Than 3 Seconds Height, Weight, BMI Height: '" Weight: lbs. oz. kg; 24.00 BMI Method: General Appearance: No Apparent Distress, WD/WN, Thin, Other (DOES NOT APPEAR TO BE IN ANY DISCOMFORT OR DISTRESS) Neck: Full Range of Motion, Normal Inspection, Non Tender, Supple Respiratory: Normal Breath Sounds, No Accessory Muscle Use, No Respiratory Distress, Other (MILD MID AND LEFT UPPER CHEST TENDERNESS. ) Cardiovascular: Regular Rate, Rhythm, No Edema, No JVD, No Murmur, Normal Peripheral Pulses Gastrointestinal: Non Tender, Soft Extremity: Normal Inspection Neurologic/Psychiatric: Alert, Oriented x3, No Motor/Sensory Deficits, lathe setup operator II- XII Norm as Tested Skin: Normal Color, Warm/Dry; No Rash; Tattoos/Piercings Progress/Results/Core Measures Results/Orders Lab Results Laboratory Tests Test 02/26/21 04:30 02/26/21 05:15 Range/Units White Blood Count 8.6 4.3-11.0 10^3/uL Red Blood Count 4.16 3.80-5.11 10^6/uL Hemoglobin 13.3 11.5-16.0 g/dL Hematocrit 40 35-52 % Mean Corpuscular Volume 96 80-99 fL Mean Corpuscular Hemoglobin 32 25-34 pg Mean Corpuscular Hemoglobin Concent 33 32-36 g/dL Red Cell Distribution Width 11.8 10.0-14.5 % Platelet Count 258 130-400 10^3/uL Mean Platelet Volume 10.1 9.0-12.2 fL Immature Granulocyte % (Auto) 0 % Neutrophils (%) (Auto) 61 42-75 % Lymphocytes (%) (Auto) 33 12-44 % Monocytes (%) (Auto) 6 0-12 % Eosinophils (%) (Auto) 0 0-10 % Basophils (%) (Auto) 0 0-10 % Neutrophils # (Auto) 5.3 1.8-7.8 10^3/uL Lymphocytes # (Auto) 2.8 1.0-4.0 10^3/uL Monocytes # (Auto) 0.5 0.0-1.0 10^3/uL Eosinophils # (Auto) 0.0 0.0-0.3 10^3/uL Basophils # (Auto) 0.0 0.0-0.1 10^3/uL Immature Granulocyte # (Auto) 0.0 0.0-0.1 10^3/uL Erythrocyte Sedimentation Rate 1 0-20 MM/HR D-Dimer < 0.27 0.00-0.49 UG/ML Sodium Level 143 135-145 MMOL/L Potassium Level 2.7 L 3.6-5.0 MMOL/L Chloride Level 107 98-107 MMOL/L Carbon Dioxide Level 20 L 21-32 MMOL/L Anion Gap 16 H 5-14 MMOL/L Blood Urea Nitrogen 17 7-18 MG/DL Creatinine 0.74 0.60-1.30 MG/DL Estimat Glomerular Filtration Rate 96 BUN/Creatinine Ratio 23 Glucose Level 97 70-105 MG/DL Calcium Level 9.4 8.5-10.1 MG/DL Corrected Calcium 8.5-10.1 MG/DL Magnesium Level 2.0 1.6-2.4 MG/DL Total Bilirubin 0.2 0.1-1.0 MG/DL Aspartate Amino Transf (AST/SGOT) 13 5-34 U/L Alanine Aminotransferase (ALT/SGPT) 11 0-55 U/L Alkaline Phosphatase 83 40-136 U/L Total Creatine Kinase 41 29-168 U/L Creatine Kinase MB 0.3 <6.6 NG/ML Myoglobin 14.4 10.0-92.0 NG/ML Troponin I < 0.028 <0.028 NG/ML C-Reactive Protein High Sensitivity 0.01 0.00-0.50 MG/DL B-Type Natriuretic Peptide 53.3 <100.0 PG/ML Total Protein 7.4 6.4-8.2 GM/DL Albumin 4.7 H 3.2-4.5 GM/DL Amylase Level 57 25-125 U/L Lipase 31 8-78 U/L Serum Test, Qualitative NEGATIVE NEGATIVE Urine Color YELLOW Urine Clarity CLEAR Urine pH 6.0 5-9 Urine Specific [place] >=1.030 1.016-1.022 Urine Protein NEGATIVE NEGATIVE Urine Glucose (UA) NEGATIVE NEGATIVE Urine Ketones NEGATIVE NEGATIVE Urine Nitrite NEGATIVE NEGATIVE Urine Bilirubin NEGATIVE NEGATIVE Urine Urobilinogen 0.2 < = 1.0 MG/DL Urine Leukocyte Esterase NEGATIVE NEGATIVE Urine RBC (Auto) NEGATIVE NEGATIVE Urine RBC NONE /HPF Urine WBC 2-5 /HPF Urine Squamous Epithelial Cells 2-5 /HPF Urine Crystals NONE /LPF Urine Bacteria TRACE /HPF Urine Casts NONE /LPF Urine Mucus LARGE H /LPF Urine Culture Indicated YES Urine Opiates Screen NEGATIVE NEGATIVE Urine Oxycodone Screen NEGATIVE NEGATIVE Urine Methadone Screen NEGATIVE NEGATIVE Urine Propoxyphene Screen NEGATIVE NEGATIVE Urine Barbiturates Screen NEGATIVE NEGATIVE Ur Tricyclic Antidepressants Screen NEGATIVE NEGATIVE Urine Phencyclidine Screen NEGATIVE NEGATIVE Urine Amphetamines Screen NEGATIVE NEGATIVE Urine Methamphetamines Screen NEGATIVE NEGATIVE Urine Benzodiazepines Screen NEGATIVE NEGATIVE Urine Cocaine Screen NEGATIVE NEGATIVE Urine Cannabinoids Screen NEGATIVE NEGATIVE My Orders Orders - COURTNEY DUNN DO Ed Iv/Invasive Line Start (02/26/21 04:28) Urine Bedside (02/26/21 04:28) Ekg Tracing (02/26/21 04:28) Monitor-Rhythm Ecg Trace Only (02/26/21 04:28) Drug Screen Stat (Urine) (02/26/21 04:28) Ua Culture If Indicated (02/26/21 04:28) Amylase (02/26/21 04:34) Bnp [place] (02/26/21 04:34) Cbc With Automated Diff (02/26/21 04:34) Comprehensive Metabolic Panel (02/26/21 04:34) Creatine Kinase (02/26/21 04:34) Creatine Kinase Mb (02/26/21 04:34) Hs C Reactive Protein (02/26/21 04:34) Fibrin Degradation Products (02/26/21 04:34) Hcg,Qualitative Serum (02/26/21 04:34) Lipase (02/26/21 04:34) Magnesium (02/26/21 04:34) Erythrocyte Sedimentation Rate (02/26/21 04:34) Myoglobin Serum (02/26/21 04:34) Troponin I [place] (02/26/21 04:34) Chest 1 View, Ap/Pa Only (02/26/21 04:34) Potassium Chloride (Tablet) (Klor Con Ta (02/26/21 05:30) Methylprednisolone Sod Succ (Solu-Medrol (02/26/21 05:30) Urine Culture (02/26/21 05:15) Medications Given in ED Vital Signs/I&O 02/26/21 02/26/21 04:25 06:20 Temp 36.8 Pulse 59 60 Resp 18 17 B/P (MAP) 135/81 (99) 136/90 Pulse Ox 100 98 O2 Delivery Room Air Room Air Progress Progress Note : Progress Note UNEVENTFUL ER STAY SYMPTOMS IMPROVED AT DISMISSAL Initial ECG Impression Date: Feb 26, 2021 Initial ECG Impression Time: 04:19 Initial ECG Rate: 61 Initial ECG Rhythm: Normal Sinus Diagnostic Imaging Comments CXR--PER RADIOLOGIST REPORT AT 0517 FINDINGS: Normal heart size and pulmonary vascularity. No dense consolidation, pleural effusion or pneumothorax. No acute osseous findings. IMPRESSION: No acute cardiopulmonary findings. Reviewed: Reviewed by Me Departure Impression Primary Impression: Chest wall pain Disposition: 01 HOME, SELF-CARE Condition: Improved Departure-Patient Inst. Decision time for Depature: 06:14 Referrals: GARETH BADILLO MD (PCP/Family) Primary Care Physician Patient Instructions: Chest Pain That Is Not Caused by the Heart (DC) Add. Discharge Instructions: CONTINUE PREDNISONE PRESCRIBED TYLENOL 1 GRAM 4 TIMES A DAY FOR PAIN FOLLOW UP WITH DR. BADILLO/[facility] IN 2-3 DAYS FOR FURTHER CARE, RETURN TO ER IF WORSE All discharge instructions reviewed with patient and/or family. Voiced understanding. COURTNEY DUNN DO Feb 26, 2021 04:41
[2021-02-26 04:42] LABS: BASOPHILS % (AUTO) 0 % (0-10); EOSINOPHILS % (AUTO) 0 % (0-10); HEMATOCRIT 40 % (35-52); HEMOGLOBIN 13.3 g/dL (11.5-16.0); LYMPHOCYTES # (AUTO) 2.8 10^3/uL (1.0-4.0); LYMPHOCYTES % (AUTO) 33 % (12-44); MEAN CORPUSCULAR HEMOGLOBIN 32 pg (25-34); MEAN CORPUSCULAR HGB CONC 33 g/dL (32-36); MEAN CORPUSCULAR VOLUME 96 fL (80-99); MEAN PLATELET VOLUME 10.1 fL (9.0-12.2); MONOCYTES # (AUTO) 0.5 10^3/uL (0.0-1.0); MONOCYTES % (AUTO) 6 % (0-12); NEUTROPHILS # (AUTO) 5.3 10^3/uL (1.8-7.8); NEUTROPHILS % (AUTO) 61 % (42-75); PLATELET COUNT 258 10^3/uL (130-400); WHITE BLOOD COUNT 8.6 10^3/uL (4.3-11.0)
[2021-02-26 04:43] LABS: ALBUMIN 4.7 GM/DL (3.2-4.5); CHLORIDE 107 MMOL/L (98-107); POTASSIUM 2.7 MMOL/L (3.6-5.0); SODIUM 143 MMOL/L (135-145)
[2021-02-26 04:45] LABS: AMYLASE 57 U/L (25-125); CALCIUM 9.4 MG/DL (8.5-10.1)
[2021-02-26 04:46] LABS: GLUCOSE 97 MG/DL (70-105); TOTAL PROTEIN 7.4 GM/DL (6.4-8.2)
[2021-02-26 04:47] LABS: BILIRUBIN,TOTAL 0.2 MG/DL (0.1-1.0); CARBON DIOXIDE 20 MMOL/L (21-32)
[2021-02-26 04:49] LABS: ALKALINE PHOSPHATASE 83 U/L (40-136)
[2021-02-26 04:50] LABS: CREATININE SERUM 0.74 MG/DL (0.60-1.30); GFR ESTIMATED 96
[2021-02-26 04:51] LABS: BUN/CREATININE RATIO 23
[2021-02-26 04:52] LABS: ALANINE AMINOTRANSFERASE 11 U/L (0-55)
[2021-02-26 04:53] LABS: CREATINE KINASE 41 U/L (29-168); LIPASE 31 U/L (8-78)
[2021-02-26 05:00] LABS: CREATINE KINASE MB 0.3 NG/ML (<6.6)
--- NOTE | 2021-02-26 05:07 | Diagnostic Imaging Report ---
EXAM: CHEST 1 VIEW, AP/PA ONLY INDICATION: Chest pain. COMPARISON: None. FINDINGS: Normal heart size and pulmonary vascularity. No dense consolidation, pleural effusion or pneumothorax. No acute osseous findings. IMPRESSION: No acute cardiopulmonary findings. Dictated by: Dictated on workstation # [id number]
[2021-02-26] MEDS ORDERED: methylPREDNISolone 125 MG (Solu-MEDROL) VIAL IVP ONE (05:30)
[2021-02-26] MEDS ORDERED: KCL 10 MEQ TAB (MICRO K) PO ONE (05:30)
[2021-02-26 05:32] LABS: BILIRUBIN,URINE NEGATIVE (NEGATIVE); CLARITY,URINE CLEAR; COLOR,URINE YELLOW; GLUCOSE, URINE (UA) NEGATIVE (NEGATIVE); KETONES,URINE NEGATIVE (NEGATIVE); LEUKOCYTE ESTERASE ,URINE NEGATIVE (NEGATIVE); NITRITE,URINE NEGATIVE (NEGATIVE); PROTEIN,URINE NEGATIVE (NEGATIVE)
[2021-02-26 05:44] LABS: AMPHETAMINE SCREEN, URINE NEGATIVE (NEGATIVE); BARBITURATE SCREEN URINE NEGATIVE (NEGATIVE); BENZODIAZEPINES SCREEN URINE NEGATIVE (NEGATIVE); CANNABINOID SCREEN, URINE NEGATIVE (NEGATIVE); COCAINE SCREEN URINE NEGATIVE (NEGATIVE); METHADONE STAT NEGATIVE (NEGATIVE); METHAMPHETAMINE SCREEN URINE S NEGATIVE (NEGATIVE); OPIATE SCREEN URINE NEGATIVE (NEGATIVE); OXYCODONE STAT NEGATIVE (NEGATIVE); PROPOXYPHENE STAT NEGATIVE (NEGATIVE); TRICYCLIC ANTIDEPRESSANTS SCRE NEGATIVE (NEGATIVE)
[2021-02-26 06:03] LABS: BACTERIA,URINE TRACE /HPF
[2021-02-26 06:19] LABS: ERYTHROCYTE SEDIMENTATION RATE 1 MM/HR (0-20)
[2021-02-26 06:20] VITALS: BP 136/90
== END 2021-02-26 06:20 | disposition home or self-care (01) ==
LOC: EDUNIT# 04:20 → ER 04:21
DX: R07.89 Other chest pain (principal)
CPT/HCPCS: 36415; 71045; 80053; 80306; 81000; 82150; 82550; 82553; 83690; 83735; 83874; 83880; 84484; 84703; 85025; 85379; 85652; 86141; 87088; 93005; 93041

== ENCOUNTER 2021-04-05 11:44 | Emergency (ER) | payer MEDICAID ==
[~2021-04-05] VITALS: Ht 160 cm; Wt 48.0 kg
[2021-04-05] MEDS ORDERED: ONDA4TAB11 PO (12:41)
--- NOTE | 2021-04-05 12:41 | ED Cough/URI ---
General Chief Complaint: Cough/Cold/Flu Symptoms Stated Complaint: SORE THROAT,BODY ACHES,NAUSEA,COUGH Nursing Triage Note: Pt here with cough, soa, and fever x 2 wks but has worsened in the last 24 hours; spouse tested positive for Covid on Saturday. Source: patient Exam Limitations: no limitations History of Present Illness Date Seen by Provider: Apr 05, 2021 Time Seen by Provider: 12:00 Initial Comments 25-year-old female presents to the emergency department today with a chief complaint of nausea, body aches, a little sore throat. was diagnosed with Covid on Saturday. She has not taken really anything for her symptoms. Appetite has been okay. Denies any significant shortness of breath. No leg swelling or calf cramping. Basically negative past medical history. Concern for Covid. Unvaccinated. All other review of systems reviewed and negative except as stated. Allergies and Home Medications Allergies Coded Allergies: No Known Drug Allergies (Unverified , 03/10/20) Patient Home Medication List Home Medication List Reviewed: Yes Ibuprofen (Ibu) 600 Mg Tablet, 600 MG PO Q6HR PRN for CRAMPS Prescribed by: MICHELLE ROLON on 05/17/20 0920 Magnesium Amino Acid Chelate (Magnesium) 100 Mg Tablet, Unknown Dose PO, (Reported) Entered as Reported by: RUFINA VILLANUEVA on 08/04/20 2304 Ondansetron (Ondansetron Odt) 4 Mg Tab.rapdis, 4 MG PO Q8H PRN for nausea Prescribed by: JOSIAS CRAVEN on 04/05/21 1241 Promethazine HCl (Promethazine Tablet) 25 Mg Tablet, 25 MG PO Q6H PRN for NAUSEA/VOMITING Prescribed by: KIRAN ZELAYA on 08/01/20 1925 Review of Systems Review of Systems Constitutional: see HPI EENTM: throat pain (mild) Respiratory: short of breath Cardiovascular: no symptoms reported Gastrointestinal: no symptoms reported Genitourinary: no symptoms reported Musculoskeletal: muscle cramps Skin: no symptoms reported All Other Systems Reviewed Negative Unless Noted: Yes Past Zznoxjq-Gxtnsg-Bdcbqb Hx Immunizations Up To Date Tetanus Booster (TDap): Less than 5yrs Seasonal Allergies Seasonal Allergies: Yes Past Medical History Surgeries: No Respiratory: No Cardiac: No Neurological: Yes (HEADACHES SINCE AGE 21) Headaches /Migraines Reproductive Disorders: No Female Reproductive Disorders: Denies Genitourinary: Yes UTI-Chronic Gastrointestinal: No Musculoskeletal: No Endocrine: No HEENT: No Cancer: No Psychosocial: No Integumentary: No Blood Disorders: No Physical Exam Vital Signs - First Documented 04/05/21 12:10 Temp 36.8 Pulse 132 Resp 18 B/P (MAP) 124/87 (99) Pulse Ox 97 O2 Delivery Room Air Capillary Refill : Less Than 3 Seconds Height: '" Weight: lbs. oz. kg; 18.00 BMI Method: General Appearance: WD/WN, no apparent distress Eyes: Bilateral Eye Normal Inspection, Bilateral Eye PERRL, Bilateral Eye EOMI HEENT: PERRL/EOMI, pharynx normal Neck: full range of motion, supple, normal inspection Respiratory: lungs clear, normal breath sounds, no respiratory distress, no accessory muscle use Cardiovascular: regular rate, rhythm Gastrointestinal: normal bowel sounds, non tender, soft Extremities: non-tender, normal inspection, no pedal edema Neurologic/Psychiatric: alert, normal mood/affect, oriented x 3 Skin: normal color, warm/dry Progress/Results/Core Measures Suspected Sepsis SIRS Temperature: Pulse: 132 Respiratory Rate: 18 Blood Pressure 124 /87 Mean: 99 Results/Orders Lab Results Laboratory Tests Test 04/05/21 12:20 Range/Units Coronavirus (COVID-19)(PCR) Positive H Negative Influenza Type A (RT-PCR) Not Detected Not Detecte Influenza Type B (RT-PCR) Not Detected Not Detecte Vital Signs/I&O 04/05/21 04/05/21 12:10 13:05 Temp 36.8 36.8 Pulse 132 132 Resp 18 18 B/P (MAP) 124/87 (99) 124/87 Pulse Ox 97 97 O2 Delivery Room Air Room Air Capillary Refill : Less Than 3 Seconds Blood Pressure Mean: 99 Departure Impression Primary Impression: Person under investigation for COVID-19 Disposition: 01 HOME, SELF-CARE Condition: Stable Departure-Patient Inst. Decision time for Depature: 12:39 Referrals: GARETH BADILLO MD (PCP/Family) Primary Care Physician Patient Instructions: COVID-19 ED Add. Discharge Instructions: Drink plenty of fluids to stay well-hydrated. Wwly-njr-cfgeknp ibuprofen 600 mg which is 3 tablets every 6 hours with food as needed for body aches, pain, fever over 100.4. Ixwu-lau-uibyqio cough cold and congestion medications may help as well is vitamin C, zinc, a good multivitamin. Pepcid for upset stomach 20 mg once daily. Return to the emergency room if you become more short of breath, have passing out spell, cannot tolerate fluids or any other emergent concerning symptoms. Zofran, 4 mg every 8 hours as needed for nausea. We will contact you from the hospital with your Covid results tomorrow. Scripts Ondansetron (Ondansetron Odt) 4 Mg Tab.rapdis 4 MG PO Q8H PRN for nausea, #15 TAB Prov: JOSIAS CRAVEN MD 04/05/21 Copy Copies To 1: GARETH BADILLO MD, KATHRYN M MD Apr 05, 2021 12:41
[2021-04-05 13:05] VITALS: BP 124/87
== END 2021-04-05 13:06 | disposition home or self-care (01) ==
LOC: EDUNIT# 11:44 → ER 11:45
DX: U07.1 COVID-19 (principal)
CPT/HCPCS: 87635; 99283

== ENCOUNTER 2021-04-19 06:09 | Emergency (ER) | payer MEDICAID ==
[~2021-04-19 06:09] MED LIST changes: +ONDA4TAB11 PO
[2021-04-19 06:24] VITALS: BP 133/79
--- NOTE | 2021-04-19 06:28 | ED General ---
General Stated Complaint: POSS MEDICATION SIDE EFFECTS,BACK PAIN,SHAKING,BRO Source of Information: Patient Exam Limitations: No Limitations History of Present Illness Date Seen by Provider: Apr 19, 2021 Time Seen by Provider: 06:28 Initial Comments Patient is a 25-year-old who presents to the emergency department with her infant son and a chief complaint of "dark urine", left-sided low back pain, feeling like she is shaking, a little bit nauseous. Symptom onset 3 to 4 hours after she took an amoxicillin tablet for dental pain last night at midnight. Patient states she has not taken anything for the symptoms. She is currently asymptomatic, not nauseous. She does have a little bit of CVA tenderness on the left. She denies cough or shortness of breath. No abdominal pain. No dysuria, urgency or frequency. No fevers. She is having a little bit of diarrhea. She recently had Covid about 2 weeks ago. No rashes, shortness of breath. LMP 2 years ago - On Depo, last shot 2 weeks ago She was prescribed the amoxicillin yesterday for dental pain in her wisdom teeth. She has a dentist appointment pending. All other review of systems reviewed and negative except as stated. Timing/Duration: 1-3 Hours Severity: Mild Associated Systoms: Nausea/Vomiting (nausea without vomiting) Allergies and Home Medications Allergies Coded Allergies: No Known Drug Allergies (Unverified , 03/10/20) Patient Home Medication List Home Medication List Reviewed: Yes Ibuprofen (Ibu) 600 Mg Tablet, 600 MG PO Q6HR PRN for CRAMPS Prescribed by: MICHELLE ROLON on 05/17/20 0920 Magnesium Amino Acid Chelate (Magnesium) 100 Mg Tablet, Unknown Dose PO, (Reported) Entered as Reported by: RUFINA VILLANUEVA on 08/04/20 2304 Ondansetron (Ondansetron Odt) 4 Mg Tab.rapdis, 4 MG PO Q8H PRN for nausea Prescribed by: JOSIAS CRAVEN on 04/05/21 1241 Promethazine HCl (Promethazine Tablet) 25 Mg Tablet, 25 MG PO Q6H PRN for NAUSEA/VOMITING Prescribed by: KIRAN ZELAYA on 08/01/20 1925 Review of Systems Review of Systems Constitutional: see HPI EENTM: no symptoms reported Respiratory: no symptoms reported Cardiovascular: no symptoms reported Gastrointestinal: diarrhea Genitourinary: other ("dark urine") : No Musculoskeletal: back pain Skin: no symptoms reported Psychiatric/Neurological: No Symptoms Reported All Other Systems Reviewed Negative Unless Noted: Yes Past Wnxjcjb-Kkulxm-Fcxavb Hx Immunizations Up To Date Tetanus Booster (TDap): Less than 5yrs Seasonal Allergies Seasonal Allergies: Yes Past Medical History Surgeries: No Respiratory: No Cardiac: No Neurological: Yes (HEADACHES SINCE AGE 21) Headaches /Migraines Reproductive Disorders: No Female Reproductive Disorders: Denies Genitourinary: Yes UTI-Chronic Gastrointestinal: No Musculoskeletal: No Endocrine: No HEENT: No Cancer: No Psychosocial: No Integumentary: No Blood Disorders: No Physical Exam Vital Signs Vital Signs - First Documented 04/19/21 06:24 Temp 36.2 Pulse 82 Resp 20 B/P (MAP) 133/79 (97) Pulse Ox 98 O2 Delivery Room Air Capillary Refill : Height, Weight, BMI Height: '" Weight: lbs. oz. kg; 18.00 BMI Method: General Appearance: No Apparent Distress, WD/WN Eyes: Bilateral Eye Normal Inspection, Bilateral Eye PERRL, Bilateral Eye EOMI HEENT: PERRL/EOMI Neck: Full Range of Motion, Normal Inspection Respiratory: Lungs Clear, Normal Breath Sounds, No Accessory Muscle Use, No Respiratory Distress Cardiovascular: Regular Rate, Rhythm, Normal Peripheral Pulses Gastrointestinal: Soft, Tenderness (suprapubic) Back: Normal Inspection, CVA Tenderness (L) Extremity: Normal Inspection, Normal Range of Motion, Non Tender, No Calf Tenderness Neurologic/Psychiatric: Alert, Oriented x3, No Motor/Sensory Deficits Skin: Normal Color, Warm/Dry, Other (No rashes) Progress/Results/Core Measures Suspected Sepsis SIRS Temperature: Pulse: Respiratory Rate: Blood Pressure / Mean: Results/Orders Lab Results Laboratory Tests Test 04/19/21 06:30 Range/Units Urine Color YELLOW Urine Clarity CLEAR Urine pH 6.0 5-9 Urine Specific [place] 1.020 1.016-1.022 Urine Protein TRACE H NEGATIVE Urine Glucose (UA) NEGATIVE NEGATIVE Urine Ketones 1+ H NEGATIVE Urine Nitrite NEGATIVE NEGATIVE Urine Bilirubin NEGATIVE NEGATIVE Urine Urobilinogen 0.2 < = 1.0 MG/DL Urine Leukocyte Esterase NEGATIVE NEGATIVE Urine RBC (Auto) NEGATIVE NEGATIVE Urine RBC NONE /HPF Urine WBC RARE /HPF Urine Squamous Epithelial Cells RARE /HPF Urine Crystals NONE /LPF Urine Bacteria NEGATIVE /HPF Urine Casts NONE /LPF Urine Mucus NEGATIVE /LPF Urine Culture Indicated NO My Orders Orders - JOSIAS CRAVEN MD Ua Culture If Indicated (04/19/21 06:28) Urine Bedside (04/19/21 06:28) Vital Signs/I&O 04/19/21 06:24 Temp 36.2 Pulse 82 Resp 20 B/P (MAP) 133/79 (97) Pulse Ox 98 O2 Delivery Room Air Capillary Refill : Progress Note : Time: 07:06 Progress Note Patient's urinalysis is negative for infection, trace blood without RBCs. I have advised the patient that her urine is not infected. She states that she does not have any abnormal vaginal discharge. No fevers. She states "my back pain is my worst part". And points to the left flank. She denies having blood in her stool but does endorse the diarrhea. Low risk for diverticulitis. No clinical or objective findings to warrant further testing at this time. I advised her to drink plenty of fluids and take a dose of either ibuprofen for her back pain or Excedrin for her back pain. She is comfortable with this plan of care. I reassured her that I did not think the symptoms were a side effect of the amoxicillin. Advise follow-up with her primary care physician. All questions are sought and answered. Departure Impression Primary Impression: Low back pain Qualified Codes: M54.50 - Low back pain, unspecified Disposition: 01 HOME, SELF-CARE Condition: Stable Departure-Patient Inst. Decision time for Depature: 07:07 Referrals: GARETH BADILLO MD (PCP/Family) Primary Care Physician Patient Instructions: Low Back Pain (DC) Add. Discharge Instructions: Drink lots of fluids to stay well-hydrated. Monitor for further symptoms, fever, nausea vomiting, blood in stool, abdominal pain. Take ibuprofen with food as needed for pain or Excedrin. Return to the emergency room for worsening symptoms. Follow-up with your primary care provider Copy Copies To 1: GARETH BADILLO MD, KATHRYN M MD Apr 19, 2021 06:28
[2021-04-19 06:42] LABS: BILIRUBIN,URINE NEGATIVE (NEGATIVE); CLARITY,URINE CLEAR; COLOR,URINE YELLOW; GLUCOSE, URINE (UA) NEGATIVE (NEGATIVE); KETONES,URINE 1+ (NEGATIVE); LEUKOCYTE ESTERASE ,URINE NEGATIVE (NEGATIVE); NITRITE,URINE NEGATIVE (NEGATIVE); PROTEIN,URINE TRACE (NEGATIVE)
[2021-04-19 06:53] LABS: BACTERIA,URINE NEGATIVE /HPF; SQUAMOUS EPITHELIAL CELL,UR RARE /HPF; WBC,URINE RARE /HPF
== END 2021-04-19 07:14 | disposition home or self-care (01) ==
LOC: EDUNIT# 06:09 → ER 06:13
DX: M54.50 Low back pain, unspecified (principal)
CPT/HCPCS: 81000; 84703; 99282

== ENCOUNTER → 2021-09-22 | Outpatient (CLI) | payer MEDICAID ==
[~2021-09-22] MED LIST changes: +CATHETER FLUSH 10 ML SYR IVP PRN
--- NOTE | 2021-09-22 11:49 | Diagnostic Imaging Report ---
INDICATION: Epigastric pain EXAMINATION: HIDA scan 09/22/2021 FINDINGS: After the uneventful administration of 5.35 mCi of technetium 99m Choletec intravenously, subsequent imaging was performed with prompt homogeneous uptake seen throughout the liver. Gallbladder and small bowel seen within less than 60 minutes. Subsequent administration of Ensure given orally with continued imaging performed. Ejection fraction is calculated at 62.7% IMPRESSION: 1. No obstructive process. 2. Normal ejection fraction. Dictated by: Dictated on workstation # [id number]
== END ==
LOC: CARD 09:15
PROVIDERS: ATTEND Surgery
DX: R10.13 Epigastric pain (principal)
CPT/HCPCS: 78227; A9537

== ENCOUNTER → 2021-11-03 | Emergency (ER) | payer MEDICAID ==
[~2021-11-03] VITALS: Ht 160 cm; Wt 46.7 kg
[~2021-11-03] MED LIST changes: -CATHETER FLUSH 10 ML SYR IVP PRN
[2021-11-03 11:18] VITALS: BP 115/73
[2021-11-03 12:39] LABS: BASOPHILS % (AUTO) 0 % (0-10); EOSINOPHILS # (AUTO) 0.1 10^3/uL (0.0-0.3); EOSINOPHILS % (AUTO) 1 % (0-10); HEMATOCRIT 43 % (35-52); HEMOGLOBIN 14.5 g/dL (11.5-16.0); LYMPHOCYTES % (AUTO) 12 % (12-44); MEAN CORPUSCULAR HEMOGLOBIN 31 pg (25-34); MEAN CORPUSCULAR HGB CONC 33 g/dL (32-36); MEAN CORPUSCULAR VOLUME 92 fL (80-99); MEAN PLATELET VOLUME 9.7 fL (9.0-12.2); MONOCYTES # (AUTO) 0.5 10^3/uL (0.0-1.0); MONOCYTES % (AUTO) 6 % (0-12); NEUTROPHILS % (AUTO) 81 % (42-75); PLATELET COUNT 206 10^3/uL (130-400); WHITE BLOOD COUNT 8.6 10^3/uL (4.3-11.0)
[2021-11-03 12:55] LABS: ALBUMIN 4.8 GM/DL (3.2-4.5); CHLORIDE 107 MMOL/L (98-107); POTASSIUM 3.8 MMOL/L (3.6-5.0); SODIUM 140 MMOL/L (135-145)
[2021-11-03 12:56] LABS: CALCIUM 9.8 MG/DL (8.5-10.1)
[2021-11-03 12:57] LABS: GLUCOSE 86 MG/DL (70-105)
[2021-11-03 12:58] LABS: TOTAL PROTEIN 7.5 GM/DL (6.4-8.2)
[2021-11-03 12:59] LABS: BILIRUBIN,TOTAL 0.6 MG/DL (0.1-1.0); CARBON DIOXIDE 25 MMOL/L (21-32)
[2021-11-03 13:01] LABS: ALKALINE PHOSPHATASE 78 U/L (40-136); CREATININE SERUM 0.73 MG/DL (0.60-1.30); GFR ESTIMATED 117
--- NOTE | 2021-11-03 13:01 | Diagnostic Imaging Report ---
INDICATION: Vision change, diplopia TECHNIQUE: Routine non contrast-enhanced axial images were obtained from the skull base to the vertex. Auto Exposure Controls were utilized during the CT exam to meet ALARA standards for radiation dose reduction COMPARISON: None. FINDINGS: The ventricles and cortical sulci are normal in size and contour. There is no midline shift or mass-effect. No acute intra-axial hemorrhage is seen. There are no abnormal areas of increased or decreased density to suggest acute hemorrhage or edema. No extra-axial masses or collections are present. The bony calvarium is intact. The visualized paranasal sinuses are unremarkable. The mastoid air cells are clear. IMPRESSION: 1. No acute intracranial abnormality. No CT evidence of mass, acute infarct or intracranial hemorrhage. Dictated by: Dictated on workstation # [id number]
[2021-11-03 13:02] LABS: BUN/CREATININE RATIO 21
[2021-11-03 13:03] LABS: ERYTHROCYTE SEDIMENTATION RATE 4 MM/HR (0-20)
[2021-11-03 13:04] LABS: ALANINE AMINOTRANSFERASE 51 U/L (0-55)
[2021-11-03 13:26] LABS: FREE T4 (FREE THYROXINE) 1.07 NG/DL (0.70-1.48)
--- NOTE | 2021-11-03 21:07 | ED General ---
General Chief Complaint: Eye Problems Stated Complaint: BLURRED VISION Nursing Triage Note: PT AMBULATE TO ROOM FT1 WITH C/O BILAT EYE PAIN AND BLURRED VISION X1 WEEK. PT STATES SHE CANNOT SEE HER EYE DOCTOR BECAUSE INSURANCE WILL NOT PAY FOR THE VISIT. PT REPORTS BEING SEEN AT [facility] YESTERDAY AND "THEY DID NOTHING". Source of Information: Patient Exam Limitations: No Limitations History of Present Illness Date Seen by Provider: Nov 03, 2021 Time Seen by Provider: 11:44 Initial Comments This 26-year-old young lady presents to the emergency room with complaint of blurry vision and difficulty focusing for about 1 week. This has been accompanied by eye pain bilaterally and headache. She denies any visual field cut deficits. Symptoms are worse at night. She has not been to an eye doctor because she says insurance will not pay for the visit. Her eye doctor is Dr. Solorzano. Her primary care provider is Dr. Badillo. This change seems to be fairly abrupt. Allergies and Home Medications Allergies Coded Allergies: No Known Drug Allergies (Unverified , 03/10/20) Patient Home Medication List Home Medication List Reviewed: Yes Ibuprofen (Ibu) 600 Mg Tablet, 600 MG PO Q6HR PRN for CRAMPS Prescribed by: MICHELLE ROLON on 05/17/20 0920 Magnesium Amino Acid Chelate (Magnesium) 100 Mg Tablet, Unknown Dose PO, (Reported) Entered as Reported by: RUFINA VILLANUEVA on 08/04/20 2304 Ondansetron (Ondansetron Odt) 4 Mg Tab.rapdis, 4 MG PO Q8H PRN for nausea Prescribed by: JOSIAS CRAVEN on 04/05/21 1241 Promethazine HCl (Promethazine Tablet) 25 Mg Tablet, 25 MG PO Q6H PRN for NAUSEA/VOMITING Prescribed by: KIRAN ZELAYA on 08/01/20 1925 Review of Systems Review of Systems Constitutional: no symptoms reported EENTM: see HPI Respiratory: no symptoms reported Cardiovascular: no symptoms reported Gastrointestinal: no symptoms reported Genitourinary: no symptoms reported : No Musculoskeletal: no symptoms reported Skin: no symptoms reported Psychiatric/Neurological: See HPI Hematologic/Lymphatic: No Symptoms Reported Immunological/Allergic: no symptoms reported Past Sabrtsb-Speccc-Zzkpcv Hx Patient Social History Tobacco Use?: No Smoking Status: Never a Smoker Smokeless Tobacco Frequency: Never a User Use of E-Cig and/or Vaping dev: Yes E-Cig or Vaping type used: Nicotine Use of E-Cig and/or Vaping Jayy: Current Everyday User Substance use?: No Alcohol Use?: No Pt feels they are or have been: No Immunizations Up To Date Tetanus Booster (TDap): Less than 5yrs Seasonal Allergies Seasonal Allergies: Yes Past Medical History Surgeries: No Respiratory: No Cardiac: No Neurological: Yes (HEADACHES SINCE AGE 21) Headaches /Migraines Reproductive Disorders: No Female Reproductive Disorders: Denies Genitourinary: Yes UTI-Chronic Gastrointestinal: No Musculoskeletal: No Endocrine: No HEENT: No Cancer: No Psychosocial: No Integumentary: No Blood Disorders: No Physical Exam Vital Signs Vital Signs - First Documented 11/03/21 11:18 Temp 36.7 Pulse 98 Resp 16 B/P (MAP) 115/73 (87) O2 Delivery Room Air Capillary Refill : Less Than 3 Seconds Height, Weight, BMI Height: '" Weight: lbs. oz. kg; 18.00 BMI Method: General Appearance: WD/WN, Mild Distress, Thin HEENT: PERRL/EOMI, Normal ENT Inspection, Other (Patient has a difficulty focusing during H exam and blinks often to try to focus. No apparent conjunctivitis or scleral injection.) Neck: Normal Inspection Respiratory: Lungs Clear, Normal Breath Sounds, No Accessory Muscle Use Cardiovascular: Regular Rate, Rhythm, No Edema, No Murmur Extremity: Normal Inspection, No Pedal Edema Neurologic/Psychiatric: Alert, Oriented x3, No Motor/Sensory Deficits, Normal Mood/Affect, relationship associate II-XII Norm as Tested Skin: Normal Color, Warm/Dry Progress/Results/Core Measures Suspected Sepsis SIRS Temperature: Pulse: 98 Respiratory Rate: 16 Laboratory Tests 11/03/21 12:15: White Blood Count 8.6 Blood Pressure 115 /73 Mean: 87 Laboratory Tests 11/03/21 12:15: Creatinine 0.73, Platelet Count 206, Total Bilirubin 0.6 Results/Orders Lab Results Laboratory Tests Test 11/03/21 12:15 Range/Units White Blood Count 8.6 4.3-11.0 10^3/uL Red Blood Count 4.74 3.80-5.11 10^6/uL Hemoglobin 14.5 11.5-16.0 g/dL Hematocrit 43 35-52 % Mean Corpuscular Volume 92 80-99 fL Mean Corpuscular Hemoglobin 31 25-34 pg Mean Corpuscular Hemoglobin Concent 33 32-36 g/dL Red Cell Distribution Width 11.6 10.0-14.5 % Platelet Count 206 130-400 10^3/uL Mean Platelet Volume 9.7 9.0-12.2 fL Immature Granulocyte % (Auto) 1 % Neutrophils (%) (Auto) 81 H 42-75 % Lymphocytes (%) (Auto) 12 12-44 % Monocytes (%) (Auto) 6 0-12 % Eosinophils (%) (Auto) 1 0-10 % Basophils (%) (Auto) 0 0-10 % Neutrophils # (Auto) 7.0 1.8-7.8 10^3/uL Lymphocytes # (Auto) 1.0 1.0-4.0 10^3/uL Monocytes # (Auto) 0.5 0.0-1.0 10^3/uL Eosinophils # (Auto) 0.1 0.0-0.3 10^3/uL Basophils # (Auto) 0.0 0.0-0.1 10^3/uL Immature Granulocyte # (Auto) 0.0 0.0-0.1 10^3/uL Erythrocyte Sedimentation Rate 4 0-20 MM/HR Sodium Level 140 135-145 MMOL/L Potassium Level 3.8 3.6-5.0 MMOL/L Chloride Level 107 98-107 MMOL/L Carbon Dioxide Level 25 21-32 MMOL/L Anion Gap 8 5-14 MMOL/L Blood Urea Nitrogen 15 7-18 MG/DL Creatinine 0.73 0.60-1.30 MG/DL Estimat Glomerular Filtration Rate 117 BUN/Creatinine Ratio 21 Glucose Level 86 70-105 MG/DL Calcium Level 9.8 8.5-10.1 MG/DL Corrected Calcium 8.5-10.1 MG/DL Total Bilirubin 0.6 0.1-1.0 MG/DL Aspartate Amino Transf (AST/SGOT) 33 5-34 U/L Alanine Aminotransferase (ALT/SGPT) 51 0-55 U/L Alkaline Phosphatase 78 40-136 U/L C-Reactive Protein High Sensitivity 0.07 0.00-0.50 MG/DL Total Protein 7.5 6.4-8.2 GM/DL Albumin 4.8 H 3.2-4.5 GM/DL Thyroid Stimulating Hormone (TSH) 0.93 0.35-4.94 UIU/ML Free Thyroxine 1.07 0.70-1.48 NG/DL Serum Test, Qualitative NEGATIVE NEGATIVE My Orders Orders - MEKHI FREED MD Ct Head Wo (11/03/21 11:58) Cbc With Automated Diff (11/03/21 11:58) Comprehensive Metabolic Panel (11/03/21 11:58) Hs C Reactive Protein (11/03/21 11:58) Erythrocyte Sedimentation Rate (11/03/21 11:58) Ed Iv/Invasive Line Start (11/03/21 11:58) Hcg,Qualitative Serum (11/03/21 12:00) Thyroid Stimulating Hormone (11/03/21 12:00) Free T4 (Free Thyroxine) (11/03/21 12:00) Vital Signs/I&O 11/03/21 11:18 Temp 36.7 Pulse 98 Resp 16 B/P (MAP) 115/73 (87) O2 Delivery Room Air Capillary Refill : Less Than 3 Seconds Blood Pressure Mean: 87 Progress Note : Progress Note Based on patient's history and significant difficulty with focusing during examination of extraocular movements in the context of headaches and eye pain, there was concern for a systemic problem such as temporal arteritis or intracranial problem. Work-up was therefore recommended. Patient consented to labs and CT of the head. However, she was not prepared to stay for full work-up due to family obligations, so she left AGAINST MEDICAL ADVICE I did take her phone number [phone] so that she could be contacted if there were any serious findings on her work-up. None were found. Before she left [place] she was strongly encouraged to see an eyeglass frame truer soon as possible and follow- up with her primary care provider. Diagnostic Imaging Diagonstic Imaging: CT Plain Films/CT/US/NM/MRI: head Comments NAME: [facility] REC#: [id number] PT STATUS: REG ER : 1995 PHYSICIAN: MEKHI FREED MD ADMIT DATE: 11/03/21/ER Draft Date of Exam:11/03/21 CT HEAD WO INDICATION: Vision change, diplopia TECHNIQUE: Routine non contrast-enhanced axial images were obtained from the skull base to the vertex. Auto Exposure Controls were utilized during the CT exam to meet ALARA standards for radiation dose reduction COMPARISON: None. FINDINGS: The ventricles and cortical sulci are normal in size and contour. There is no midline shift or mass-effect. No acute intra-axial hemorrhage is seen. There are no abnormal areas of increased or decreased density to suggest acute hemorrhage or edema. No extra-axial masses or collections are present. The bony calvarium is intact. The visualized paranasal sinuses are unremarkable. The mastoid air cells are clear. IMPRESSION: 1. No acute intracranial abnormality. No CT evidence of mass, acute infarct or intracranial hemorrhage. Dictated on workstation # [id number] Dict: 11/03/21 1257 Trans: 11/03/[address] [place] [id number] Interpreted by: CRISTIAN CHAVEZ MD Departure Impression Primary Impression: Blurry vision, bilateral Additional Impressions: Eye pain Qualified Codes: H57.13 - Ocular pain, bilateral Left against medical advice Disposition: AGAINST MEDICAL ADVICE Condition: Against Medical Advice Departure-Patient Inst. Referrals: GARETH BADILLO MD (PCP) Primary Care Physician Copy Copies To 1: GARETH BADILLO MD, JOSHUA T MD Nov 03, 2021 21:07
== END ==
LOC: EDUNIT# 11:13 → ER 11:14
DX: H53.8 Other visual disturbances (principal); H57.13 Ocular pain, bilateral; F17.290 Nicotine dependence, other tobacco product, uncomplicated; Z28.310 Unvaccinated for COVID-19
CPT/HCPCS: 36415; 70450; 80053; 84439; 84443; 84703; 85025; 85652; 86141